=== PATIENT | female | born 1935 | race Caucasian/White ===

== ENCOUNTER 2016-06-22 08:01 | Inpatient (IN) | payer MEDICARE, OTHER ==
[~2016-06-22] VITALS: Ht 162.6 cm; Wt 111.7 kg
[2016-06-22] MEDS ORDERED: FLEC100T PO (08:19)
[2016-06-22] MEDS ORDERED: OMEP40CA2 PO (08:26)
[2016-07-02 07:35] VITALS: BP 193/104; PULSE 67; RESP 24; TEMP 97.5; O2SAT 99
[2016-07-02] MEDS ORDERED: ceFAZolin 2 GM PREMIX 50 ML IV SCH (08:00)
[2016-07-02] MEDS ORDERED: INSULIN HUMAN REGULAR 1,000 UNITS/10 ML VIAL SQ PRN (08:00)
[2016-07-02] MEDS: TRANEXAMIC ACID IV SCH ×2 (08:00→10:05)
[2016-07-02] MEDS: SODIUM CHLORID 0.9% 500 ML IV SCH (08:00)
[2016-07-02] MEDS ORDERED: SODIUM CHLORIDE 0.9% IV SCH (08:00)
[2016-07-02] MEDS: EXPAREL PERI-ARTICULAR INJECTION (TOTAL VOL. 100 ML) P-ARTICULR SCH ×4 (08:00→10:20)
[2016-07-02] MEDS ORDERED: TRANEXAMIC ACID IV SCH (08:00)
[2016-07-02] MEDS: SODIUM CHLORIDE 0.9% IV SCH ×2 (08:00→10:05)
[2016-07-02] MEDS: CHLORHEXIDINE GLUCONATE 4% SOLN 120 ML BTL TOP SCH (08:00)
[2016-07-02] MEDS ORDERED: METOPROLOL TARTRATE 25 MG TAB PO PRN (08:00)
[2016-07-02] MEDS: LACTATED RINGER'S 1000 ML IV SCH (08:00)
[2016-07-02] MEDS ORDERED: GENTAMICIN SULFATE 80 MG/2 ML VIAL ONE (08:39)
[2016-07-02] MEDS ORDERED: MIDAZOLAM HCL 5 MG/5 ML VIAL ONE (09:18)
[2016-07-02] MEDS ORDERED: ONDANSETRON HCL 4 MG/2 ML VIAL IVP PRN (09:30)
[2016-07-02] MEDS ORDERED: ZOLPIDEM TARTRATE 5 MG TAB PO PRN (09:30)
[2016-07-02] MEDS ORDERED: MORPHINE SULFATE 4 MG/ML INJ IV PUSH PRN (09:30)
[2016-07-02] MEDS ORDERED: TRANEXAMIC ACID INJ 0 MG in SODIUM CHLORIDE 0.9% INJ 100 ML IV SCH (09:30)
[2016-07-02] MEDS ORDERED: MAGNESIUM HYDROXIDE SUSP 30 ML CUP PO PRN (09:30)
[2016-07-02] MEDS ORDERED: Post-op Orders (for Pharmacy) MISC XX ONE (09:30)
[2016-07-02] MEDS ORDERED: ACETAMINOPHEN/HYDROcodone 325 MG/7.5 MG TAB PO PRN ×2 (09:30)
[2016-07-02] MEDS ORDERED: FAMOTIDINE 20 MG/2 ML VIAL ONE (09:32)
[2016-07-02] MEDS ORDERED: DEXAMETHASONE SOD PHOS 4 MG/ML VIAL ONE (09:33)
[2016-07-02] MEDS ORDERED: ACETAMINOPHEN 1000 MG/100 ML VIAL IV ONE (09:34)
[2016-07-02] MEDS ORDERED: SUGAMMADEX SODIUM 200 MG/2 ML VIAL IV PUSH ONE ×2 (09:34)
[2016-07-02] MEDS ORDERED: ceFAZolin INJ 1,000 MG VIAL IV ONE (10:20)
[2016-07-02] MEDS ORDERED: PROPOFOL 200 MG/20 ML AMP IV ONE (12:00)
[2016-07-02] MEDS ORDERED: LACTATED RINGER'S 1000 ML INJ 1,000 ML IV ONE (12:00)
[2016-07-02] MEDS ORDERED: NEOSTIGMINE 3 MG/3 ML SYR IV ONE (12:00)
[2016-07-02] MEDS ORDERED: ONDANSETRON HCL 4 MG/2 ML VIAL IV PUSH ONE (12:00)
[2016-07-02] MEDS ORDERED: ePHEDrine/NS 50 MG/5 ML SYR IV ONE (12:00)
[2016-07-02] MEDS ORDERED: DO NOT ADM ANY ANTICOAGULANT DRUGS XX PRN (12:32)
[2016-07-02] MEDS ORDERED: fentaNYL CITRATE 250 MCG/5 ML AMP ONE (12:44)
[2016-07-02] MEDS ORDERED: *LABETALOL HCL 100 MG/20 ML VIAL PERIprocedural Use ONLY ONE (12:48)
[2016-07-02] MEDS ORDERED: BUPIVACAINE LIPOSOME PF 1.3% 20 ML VIAL ONE (12:49)
[2016-07-02] MEDS: LACTATED RINGER'S 1000 ML INJ 1,000 ML IV SCH ×2 (13:00→22:30)
[2016-07-02] MEDS ORDERED: *ONDANSETRON 4 MG VIAL PERIprocedural Use ONLY ONE (13:40)
[2016-07-02] MEDS: KETOROLAC TROMETHAMINE 30 MG/ML (IVP) VIAL IVP SCH ×2 (14:19→18:46)
[2016-07-02 15:03] VITALS: BP 167/74; PULSE 66; RESP 18; TEMP 96.2; O2SAT 97
--- NOTE | 2016-07-02 15:24 | RADRPT ---
EXAM DATE/TIME: 07/02/2016 13:11 [place] COMPARISON: No previous studies available for comparison. INDICATIONS : Eval knee post total replacement. MEDICAL HISTORY : None. SURGICAL HISTORY : Total knee replacement, right. ENCOUNTER: Initial ACUITY: 1 day PAIN SCORE: 4/10 LOCATION: Right Knee FINDINGS: AP and lateral views of the knee following arthroplasty reveals a prosthesis in anatomic alignment. F racture is not appreciated. Surgical drain is evident CONCLUSION: Status post total knee arthroplasty. Nilesh Farris MD FACR Board Certified Radiologist. This report was verified electronically.
--- NOTE | 2016-07-02 15:36 | PD.CONS ---
HPI Service [facility] Hospitalists Consult Requested By Dr. Floyd Reason for Consult Medical management Primary Care Physician Ron Cummings M.D. Diagnoses: History of Present Illness This is a pleasant 80-year-old female with history of OA. Patient was admitted for elective surgery by Dr. Floyd. Patient underwent right total knee arthroplasty. Patient has past medical history of A. fib, on flecainide, no longer takes anticoagulation. Permit Specialist is Dr. Barry, he cleared for surgery. Patient denies any chest pain, no shortness of breath, no palpitations. Indicates her heart rate has been well controlled on flecainide. She was taken off anticoagulation and has been doing well at home. Denies any coronary artery disease, no stroke, no diabetes. Hospitalist services are requested for medical management. (Deepika Real) Review of Systems Constitutional: DENIES: Diaphoretic episodes, Fatigue, Fever, Weight gain, Weight loss, Chills, Dizziness, Change in appetite, Night Sweats Endocrine: DENIES: Abnorml menstrual pattern, Heat/cold intolerance, Polydipsia , Polyuria, Polyphagia Eyes: DENIES: Blurred vision, Diplopia, Eye inflammation, Eye pain, Vision loss , Photosensitivity, Double Vision Cardiovascular: DENIES: Chest pain, Palpitations, Syncope, Dyspnea on Exertion , PND, Lower Extremity Edema, Orthopnea, Claudication Gastrointestinal: DENIES: Abdominal pain, Black stools, Bloody stools, Constipation, Diarrhea, Nausea, Vomiting, Difficulty Swallowing, Anorexia Genitourinary: DENIES: Abnormal vaginal bleeding, Dysmenorrhea, Dyspareunia, Sexual dysfunction, Urinary frequency, Urinary incontinence, Urgency, Hematuria , Dysuria, Nocturia, Vaginal discharge Musculoskeletal: COMPLAINS OF: Joint pain, DENIES: Muscle aches, Stiffness, Joint Swelling, Back pain, Neck pain Integumentary: DENIES: Abnormal pigmentation, Pruritus, Rash, Nail changes, Breast masses, Breast skin changes, Nipple discharge Hematologic/lymphatic: DENIES: Bruising, Lymphadenopathy Immunologic/allergic: DENIES: Eczema, Urticaria Neurologic: DENIES: Abnormal gait, Headache, Localized weakness, Paresthesias, Seizures, Speech Problems, Tremor, Poor Balance Psychiatric: DENIES: Anxiety, Confusion, Mood changes, Depression, Hallucinations, Agitation, Suicidal Ideation, Homicidal Ideation, Delusions ( Deepika Real) Past Family Social History Past Medical History OA Hx afib, was on anticoagulation HTN Past Surgical History Bilat shoulder surgery Arthroscopy surgery bilat knees Appendectomy Tubal ligation Reported Medications Reported Meds & Active Scripts Active Reported Omeprazole 40 Mg Cap 40 Mg PO DAILY Flecainide (Flecainide Acetate) 100 Mg Tab 100 Mg PO BID (Deepika Real) Allergies: Coded Allergies: No Known Allergies (Unverified , 07/02/16) Active Ordered Medications Inpatient Medications Acetaminophen/ Hydrocodone Bitart ([place] 7.5-325 Mg) 2 tab Q4H PRN PO PAIN SCALE 5 TO 10; Start 07/02/16 at 09:30 Bupivacaine Liposome 20 ml/ Sodium Chloride 100 ml @ 200 mls/hr ONCE P- ARTICULR Last administered on 07/02/16t 10:20; Start 07/02/16 at 08:00; Stop at 07:59 Cefazolin Sodium/ Dextrose 50 ml @ 100 mls/hr [employer] IV Last administered on 07/02/16 09:57; Start 07/02/16 at 08:00; Stop 07/05/16 at 07:59 Cefazolin Sodium/ Sodium Chloride (Ancef Inj/NS Inj) 100 ml @ 200 mls/hr Q6H IV ; Start 07/02/16 at 16:00; Stop 07/03/16 at 04:29 Chlorhexidine Gluconate 1 applic 1 applic ONCE TOP ; Start 07/02/16 at 08:00; Stop 07/05/16 at 07:59 Docusate Sodium (Colace) 100 mg BID PO ; Start 07/03/16 at 21:00 Flecainide Acetate (Tambocor) 100 mg BID PO ; Start 07/02/16 at 21:00 Insulin Human Regular (NovoLIN R INJ) See Protocol Table ... UNSCH X1 PRN SQ SEE PROTOCOL; Start 07/02/16 at 08:00; Stop 07/03/16 at 07:59 IV Flush (NS Flush) 2 ml UNSCH PRN IVF FLUSH AFTER USING IV ACCESS; Start 07/02 at 09:30 IV Flush 2 ml 2 ml BID IVF ; Start 07/02/16 at 21:00 Ketorolac Tromethamine (Toradol Inj) 15 mg Q6H IVP Last administered on 14:19; Start 07/02/16 at 13:00; Stop 07/04/16 at 07:01 Lactated Ringer's (Lr 1000 ml Inj) 1,000 ml @ 80 mls/hr [id number] IV Last administered on 07/02/16 13:00; Start 07/02/16 at 10:00 Magnesium Hydroxide (Milk Of Magnesia Liq) 30 ml DAILY PRN PO CONSTIPATION; Start 07/02/16 at 09:30 Metoprolol Tartrate 25 mg 25 mg UNSCH X1 PRN PO SEE LABEL COMMENTS; Start 07/02 at 08:00; Stop 07/03/16 at 07:59 Miscellaneous Information ALL NURSING DEPARTME... UNSCH PRN XX SEE LABEL COMMENTS; Start 07/02/16 at 12:32; Stop 07/03/16 at 12:31 Miscellaneous Information (Post-op Orders (for Pharmacy)) STAT ONCE XX ; Start 07/02/16 at 09:30; Stop 07/02/16 at 12:42; Status DC Morphine Sulfate (Morphine Inj) 4 mg Q3H PRN IV PUSH BREAKTHROUGH PAIN; Start 07/02/16 at 09:30 Ondansetron HCl (Zofran Inj) 4 mg Q6H PRN IVP NAUSEA OR VOMITING; Start at 09:30 Pantoprazole Sodium (Protonix) 40 mg DAILY PO ; Start 07/03/16 at 09:00 Rivaroxaban (Xarelto) 10 mg Q24H PO ; Start 07/03/16 at 12:00 Sodium Chloride (NS 500 ml Inj) 500 ml @ 30 mls/hr [id number] IV ; Start 07/02/16 at 08:00; Stop 07/03/16 at 07:59 Tranexamic Acid 1111 mg/Sodium Chloride 111.11 ml @ 200 mls/ hr ONCE IV Last administered on 07/02/16 13:05; Start 07/02/16 at 08:00; Stop 07/02/16 at 11:11 ; Status DC Zolpidem Tartrate (Ambien) 5 mg HS PRN PO SLEEP; Start 07/02/16 at 09:30 Family History Reviewed, non contributory Social History , lives with . No ETOH, no substance, quit smoking many years ago. (Deepika Real) Physical Exam Vital Signs Vital Signs Date Time Temp Pulse Resp B/P Pulse Ox O2 Delivery O2 Flow Rate FiO2 07/02/16 14:00 97.5 65 14 150/78 99 Nasal Cannula 2 07/02/16 13:45 59 12 155/82 98 Nasal Cannula 2 07/02/16 13:30 57 15 174/89 98 Nasal Cannula 2 07/02/16 13:15 55 15 167/91 98 Nasal Cannula 2 07/02/16 13:00 55 15 144/55 97 Nasal Cannula 2 07/02/16 12:45 79 14 189/86 97 Nasal Cannula 2 07/02/16 12:35 97.6 74 14 174/81 96 Nasal Cannula 2 07/02/16 07:35 97.5 67 24 193/104 99 Physical Exam GENERAL: This is a well-nourished, well-developed patient, in no apparent distress. SKIN: No rashes, ecchymoses or lesions. Cool and dry. HEAD: Atraumatic. Normocephalic. No temporal or scalp tenderness. EYES: Pupils equal round and reactive. Extraocular motions intact. No scleral icterus. No injection or drainage. ENT: Nose without bleeding, purulent drainage or septal hematoma. Throat without erythema, tonsillar hypertrophy or exudate. Uvula midline. Airway patent. NECK: Trachea midline. No JVD or lymphadenopathy. Supple, nontender, no meningeal signs. CARDIOVASCULAR: Regular rate and rhythm without murmurs, gallops, or rubs. RESPIRATORY: Clear to auscultation. Breath sounds equal bilaterally. No wheezes , rales, or rhonchi. GASTROINTESTINAL: Abdomen soft, non-tender, nondistended. No hepato-splenomegaly , or palpable masses. No guarding. MUSCULOSKELETAL: Right leg on CPM, intact sensation right foot. Able to dorsiflex right foot. Other extremities without clubbing, cyanosis, or edema. No joint tenderness, effusion, or edema noted. No calf tenderness. Negative Homans sign bilaterally. NEUROLOGICAL: Awake and alert. Cranial nerves II through XII intact. Motor and sensory grossly within normal limits. Five out of 5 muscle strength in all muscle groups. Normal speech. Laboratory Laboratory Tests Test 07/02/16 08:00 Blood Type A POSITIVE Antibody Screen NEGATIVE (Deepika Real) Imaging Last Impressions Knee X-Ray 07/02/16 0917 Signed Impressions: Service Date/Time: Saturday, July 02, 2016 13:11 - CONCLUSION: Status post total knee arthroplasty. Nilesh Farris MD (Deepika Real) A/P Diagnosis: (1) Status post total right knee replacement (2) Paroxysmal atrial fibrillation (3) Elevated BP without diagnosis of hypertension Assessment and Plan Thank you for this consultation, we will assist with medical management. Hx of OA, S/P right TKA -Post op ortho care -Xarelto for DVT prophylaxis -Pain management -PT evaluation -Wound care -Bowel regimen Hx Paroxysmal afib, stable -Continuous cardiac telemetry -Continue Tambocor -No anticoagulation at home, continue with Xarelto at this time Elevated BP, no prior hx of HTN -Monitor BP -Vasotec PRN Home medications reviewed, already restarted Continue with Xarelto for DVT prophylaxis Plan of care discussed with attending, RN, and pt. Further management of the patient will be dependent on the hospital course. This patient was seen by myself and Dr. Linder, this consultation is written on his behalf. (Deepika Real) Assessment and Plan Patient seen and examined as above Chart reviewed Meds reviewed Labs and radiological data reviewed Plan of care discussed with AKIL as above Discussed with patient and at bedside (Yoseph Linder MD) Deepika Real Jul 02, 2016 15:36 Yoseph Linder MD Jul 02, 2016 16:49
[2016-07-02] MEDS ORDERED: ENALAPRILAT 1.25 MG/ML VIAL IV PUSH PRN (16:30)
[2016-07-02] MEDS: SODIUM CHLORIDE 0.9% FLUSH 5 ML FLUSH IVF PRN (18:46)
[2016-07-02 20:25] VITALS: BP 140/71; PULSE 69; RESP 17; TEMP 95.6; O2SAT 97
[2016-07-02] MEDS: FLECAINIDE ACETATE 100 MG TAB PO SCH (20:52)
[2016-07-02] MEDS: SODIUM CHLORIDE 0.9% FLUSH 5 ML FLUSH IVF SCH (21:00)
[2016-07-03] VITALS (7 sets, daily range): BP systolic 120–145; BP diastolic 58–72; PULSE 65–75; RESP 16–18; TEMP 96.2–97.6; O2SAT 98–99
[2016-07-03] MEDS: SODIUM CHLORID 0.9% 500 ML IV SCH (00:40)
[2016-07-03] MEDS: KETOROLAC TROMETHAMINE 30 MG/ML (IVP) VIAL IVP SCH ×5 (01:15→23:01)
[2016-07-03 05:21] LABS: HEMATOCRIT 34.2 % (35.0-46.0); REVIEW FLAG FINAL
[2016-07-03 05:42] LABS: BICARBONATE 26.9 MEQ/L (21.0-32.0); POTASSIUM 4.5 MEQ/L (3.5-5.1)
--- NOTE | 2016-07-03 06:32 | PD.ORT.PN ---
Subjective Post Op Day #: 1 Subjective Remarks She is doing well. She has been up to the bathroom. There is little pain. Range of Motion -10 to 94 degrees. Distance Walked 3 feet. Objective Vitals Vital Signs Date Time Temp Pulse Resp B/P Pulse Ox O2 Delivery O2 Flow Rate FiO2 07/03/16 00:10 96.4 75 17 125/65 98 07/02/16 21:30 Nasal Cannula 2.00 07/02/16 20:25 95.6 69 17 140/71 97 07/02/16 15:03 96.2 66 18 167/74 97 07/02/16 14:30 Nasal Cannula 07/02/16 14:00 97.5 65 14 150/78 99 Nasal Cannula 2 07/02/16 13:45 59 12 155/82 98 Nasal Cannula 2 07/02/16 13:30 57 15 174/89 98 Nasal Cannula 2 07/02/16 13:15 55 15 167/91 98 Nasal Cannula 2 07/02/16 13:00 55 15 144/55 97 Nasal Cannula 2 07/02/16 12:45 79 14 189/86 97 Nasal Cannula 2 07/02/16 12:35 97.6 74 14 174/81 96 Nasal Cannula 2 07/02/16 07:35 97.5 67 24 193/104 99 I/O 07/02/16 07/02/16 07/02/16 07/03/16 07/03/16 07/03/16 07:00 15:00 23:00 07:00 15:00 23:00 Intake Total 1564 ml 1061 ml 269 ml Output Total 470 ml 160 ml 100 ml Balance 1094 ml 901 ml 169 ml Intake Oral 600 ml IV Total 264 ml 461 ml 269 ml Other 1300 ml Output Drainage Total 120 ml 160 ml 100 ml Estimated Blood Loss 350 ml # Voids 1 4 # Bowel Movements 0 Result Diagram: 07/03/16 0440 07/03/16 044 Imaging Knee x-ray looks good. Last 24 hours Impressions Knee X-Ray 07/02/16916 Signed Impressions: Service Date/Time: Saturday, July 02, 2016 13:11 - CONCLUSION: Status post total knee arthroplasty. Nilesh Farris MD Objective Remarks She is resting comfortably, supine in bed in the [facility]. The dressing is intact. The neurovascular status is intact. Assessment & Plan Ortho Post Op Day #: 1 Problem List: (1) Status post total right knee replacement Plan: Continue postop care and PT. Assessment and Plan Condition: Good. Orthopaedically stable. DVT prophylaxis: ABBE stockings, sequentials, Xarelto. Discharge plans: Home with C vs SNF, Saturday or . Has appointment. Larry Floyd MD (Charles) Jul 03, 2016 06:32
[2016-07-03] MEDS: LACTATED RINGER'S 1000 ML IV SCH (08:00)
[2016-07-03] MEDS: CHLORHEXIDINE GLUCONATE 4% SOLN 120 ML BTL TOP SCH (08:00)
[2016-07-03] MEDS: SODIUM CHLORIDE 0.9% FLUSH 5 ML FLUSH IVF SCH ×2 (09:01→20:07)
[2016-07-03] MEDS: PANTOPRAZOLE SOD 40 MG DELAYED RELEASE TAB PO SCH (09:01)
[2016-07-03] MEDS: FLECAINIDE ACETATE 100 MG TAB PO SCH ×2 (09:02→20:07)
--- NOTE | 2016-07-03 09:43 | HHI.PR ---
Subjective Subjective Remarks right leg pain has been out of bed working with PT no cp no sob no fever no bm yet no n/v tele reviewed, SR Review of Systems Constitutional Constitutional Remarks 12 point ROS completed, negative except at noted above Vitals/Results Intake & Output 07/02/16 07/02/16 07/03/16 15:00 23:00 07:00 Intake Total 1564 ml 1061 ml 509 ml Output Total 470 ml 160 ml 100 ml Balance 1094 ml 901 ml 409 ml Intake Oral 600 ml 240 ml IV Total 264 ml 461 ml 269 ml Other 1300 ml Output Drainage Total 120 ml 160 ml 100 ml Estimated Blood Loss 350 ml # Voids 1 4 1 # Bowel Movements 0 0 Vital Signs Vital Signs Date Time Temp Pulse Resp B/P Pulse Ox O2 Delivery O2 Flow Rate FiO2 07/03/16 09:05 Room Air 07/03/16 07:44 96.4 66 17 144/67 99 07/03/16 04:10 96.3 71 18 120/58 98 07/03/16 00:10 96.4 75 17 125/65 98 07/02/16 21:30 Nasal Cannula 2.00 07/02/16 20:25 95.6 69 17 140/71 97 07/02/16 15:03 96.2 66 18 167/74 97 07/02/16 14:30 Nasal Cannula 07/02/16 14:00 97.5 65 14 150/78 99 Nasal Cannula 2 07/02/16 13:45 59 12 155/82 98 Nasal Cannula 2 07/02/16 13:30 57 15 174/89 98 Nasal Cannula 2 07/02/16 13:15 55 15 167/91 98 Nasal Cannula 2 07/02/16 13:00 55 15 144/55 97 Nasal Cannula 2 07/02/16 12:45 79 14 189/86 97 Nasal Cannula 2 07/02/16 12:35 97.6 74 14 174/81 96 Nasal Cannula 2 CBC/BMP: 07/03/16 0440 07/03/16 0440 Lab Results Laboratory Tests Test 07/03/16 04:40 Hemoglobin 11.6 GM/DL Hematocrit 34.2 % Sodium Level 141 MEQ/L Potassium Level 4.5 MEQ/L Chloride Level 105 MEQ/L Carbon Dioxide Level 26.9 MEQ/L Anion Gap 9 MEQ/L Blood Urea Nitrogen 15 MG/DL Creatinine 1.14 MG/DL Estimat Glomerular Filtration 46 ML/MIN Rate Random Glucose 125 MG/DL Calcium Level 8.2 MG/DL Physical Exam General General Appearance: Well Developed, Well Nourished, No Acute Distress, Comfortable, Obese Eyes Eye Exam: Pupils Equal, Pupils Reactive Ears & Nose Ears & Nose Exam: Nasal Mucosa [place] Throat Throat Exam: Oral Mucosa [place] & Moist Neck Neck Exam: Neck Supple, Trachea Midline Pulmonary Resp Exam: Clear Bilaterally, No Distress Cardiology CV Exam: Regular Gastrointestinal/Abdomen GI Exam: Soft, Non-Tender, Bowel Sounds Present, Non-Distended Musculoskeletal MS Exam: Joints Intact MS Remarks right knee with dressing, hemovac drain Integumentary Skin Exam: Warm, Dry Extremeties Extremities Exam: Pedal Pulses Palpable, Trace Edema Neurologic Neuro Exam: Alert, Awake, Oriented, Speech Clear, Moving All Extremities, No Focal Deficits Psychiatric Psych Exam: Appropriate Responses VTE Prophylaxis VTE Remarks Xarelto Assessment/Plan Problem List: (1) Primary osteoarthritis of right knee (2) Status post total right knee replacement (3) Elevated BP without diagnosis of hypertension (4) Paroxysmal atrial fibrillation Assessment/Plan Hx of OA, S/P right TKA -Post op ortho care -Xarelto for DVT prophylaxis -Pain management -PT evaluation -Wound care -Bowel regimen Hx Paroxysmal afib, stable -Continuous cardiac telemetry -Continue Tambocor -No anticoagulation at home, continue with Xarelto at this time Elevated BP, no prior hx of HTN, stable overnight -Monitor BP -Vasotec PRN Continue with Xarelto for DVT prophylaxis HH stable D/W RN D/W Dr. Almazan D/W pt. This patient was seen by myself and Dr. Almazan, this note is written on his behalf. Deepika Real Jul 03, 2016 09:43
[2016-07-03] MEDS: LACTATED RINGER'S 1000 ML INJ 1,000 ML IV SCH ×2 (11:00→23:30)
[2016-07-03] MEDS ORDERED: RIVAROXABAN 10 MG TAB PO SCH (12:00)
[2016-07-03] MEDS: SODIUM CHLORIDE 0.9% FLUSH 5 ML FLUSH IVF PRN (12:48)
[2016-07-03] MEDS: traMADol HCL 50 MG TAB PO PRN ×2 (16:50→22:58)
[2016-07-03] MEDS ORDERED: WALKER WHEELS/F1 MIS (17:05)
--- NOTE | 2016-07-03 17:09 | HHI.FF ---
Face to Face Verification Diagnosis: (1) Status post total right knee replacement Physical Therapy Gait training Knee: Total knee, Protocol: Right, Gait training, Full weight bearing Right LE Weight Bearing: WB as tolerated Right LE Range of Motion: Active ROM (AROM, AAROM, PROM, PRE. ROM goal is 0 to 130 degrees. ROM in OR was 0 to 140 degrees.) Nursing Nursing: Dressing changes Dressing Changes: Daily dressing change, Coverderm/Primapore Additional Instructions Remove steristrips on postop day 14. I have seen patient Radha Christy on 07/03/16. My clinical findings support the need for the requested home health care services because: Ltd mobility - disease progression Limited ability to care for self High risk of falls I certify that my clinical findings support that this patient is homebound because: Post-op weakness Unsteady gait/balance Unsafe to leave home unassisted Larry Floyd MD (Charles) Jul 03, 2016 17:09
[2016-07-03] MEDS: DOCUSATE SODIUM 100 MG CAP PO SCH (20:07)
[2016-07-04] VITALS: BP 137/71; PULSE 64; RESP 16; TEMP 97; O2SAT 98
[2016-07-04 04:00] VITALS: BP 136/81; PULSE 66; RESP 17; TEMP 97.4; O2SAT 98
[2016-07-04] MEDS: traMADol HCL 50 MG TAB PO PRN (06:16)
[2016-07-04 06:42] LABS: HEMATOCRIT 32.8 % (35.0-46.0); REVIEW FLAG FINAL
[2016-07-04] MEDS: KETOROLAC TROMETHAMINE 30 MG/ML (IVP) VIAL IVP SCH (06:43)
--- NOTE | 2016-07-04 07:05 | PD.ORT.PN ---
Subjective Post Op Day #: 2 Subjective Remarks She is doing well. She has been up to the bathroom and to PT. There is little pain. Range of Motion -5 to 95 degrees. Distance Walked 24 feet. Objective Vitals Vital Signs Date Time Temp Pulse Resp B/P Pulse Ox O2 Delivery O2 Flow Rate FiO2 07/04/16 04:00 97.4 66 17 136/81 98 07/04/16 00:00 97.0 64 16 137/71 98 07/03/16 21:00 Room Air 07/03/16 20:00 96.4 70 16 140/67 98 07/03/16 15:29 97.6 68 17 145/72 98 07/03/16 11:39 96.2 65 17 130/60 98 07/03/16 09:05 Room Air 07/03/16 07:59 65 07/03/16 07:44 96.4 66 17 144/67 99 I/O 07/03/16 07/03/16 07/03/16 07/04/16 07/04/16 07/04/16 07:00 15:00 23:00 07:00 15:00 23:00 Intake Total 509 ml 240 ml 240 ml 240 ml Output Total 100 ml 30 ml 5 ml Balance 409 ml 240 ml 210 ml 235 ml Intake Oral 240 ml 240 ml 240 ml 240 ml IV Total 269 ml Output Drainage Total 100 ml 30 ml 5 ml # Voids 1 2 1 1 # Bowel Movements 0 0 0 0 Result Diagram: 07/04/16 0549 07/03/16 0440 Imaging Knee x-ray looks good. Last 24 hours Impressions Knee X-Ray 07/02/16 0917 Signed Impressions: Service Date/Time: Saturday, July 02, 2016 13:11 - CONCLUSION: Status post total knee arthroplasty. Nilesh Farris MD Objective Remarks She is OOb in the chair. The dressing is intact. There is no erythema or induration. The neurovascular status is intact. Assessment & Plan Ortho Post Op Day #: 2 Problem List: (1) Status post total right knee replacement Plan: Continue postop care and PT. Assessment and Plan Condition: Good. Orthopaedically stable. DVT prophylaxis: ABBE stockings, sequentials,ASA. Discharge plans: Home with [facility] today. Has appointment. Rx: [place] 7.5/325 Larry Floyd MD (Charles) Jul 04, 2016 07:04
[2016-07-04] MEDS ORDERED: Aspirin Ec PO (07:30)
[2016-07-04] MEDS ORDERED: HYDR-3580 PO (07:30)
[2016-07-04] MEDS: DOCUSATE SODIUM 100 MG CAP PO SCH (08:05)
[2016-07-04] MEDS: FLECAINIDE ACETATE 100 MG TAB PO SCH (08:06)
[2016-07-04] MEDS: PANTOPRAZOLE SOD 40 MG DELAYED RELEASE TAB PO SCH (08:06)
[2016-07-04] MEDS ORDERED: ASPIRIN EC 325 MG TABEC PO SCH (09:00)
--- NOTE | 2016-07-04 10:52 | HHI.PR ---
Vitals/Results Intake & Output 07/03/16 07/03/16 07/04/16 15:00 23:00 07:00 Intake Total 240 ml 240 ml 240 ml Output Total 30 ml 5 ml Balance 240 ml 210 ml 235 ml Intake Oral 240 ml 240 ml 240 ml Output Drainage Total 30 ml 5 ml # Voids 2 1 1 # Bowel Movements 0 0 0 Vital Signs Vital Signs Date Time Temp Pulse Resp B/P Pulse Ox O2 Delivery O2 Flow Rate FiO2 07/04/16 04:00 97.4 66 17 136/81 98 07/04/16 00:00 97.0 64 16 137/71 98 07/03/16 21:00 Room Air 07/03/16 20:00 96.4 70 16 140/67 98 07/03/16 15:29 97.6 68 17 145/72 98 07/03/16 11:39 96.2 65 17 130/60 98 CBC/BMP: 07/04/16 0549 07/03/16 0440 Lab Results Laboratory Tests Test 07/04/16 05:49 Hemoglobin 11.1 GM/DL Hematocrit 32.8 % Physical Exam General General Appearance: Well Developed, Well Nourished, No Acute Distress, Comfortable, Obese Eyes Eye Exam: Pupils Equal, Pupils Reactive Ears & Nose Ears & Nose Exam: Nasal Mucosa [place] Throat Throat Exam: Oral Mucosa [place] & Moist Neck Neck Exam: Neck Supple, Trachea Midline Pulmonary Resp Exam: Clear Bilaterally, No Distress Cardiology CV Exam: Regular Gastrointestinal/Abdomen GI Exam: Soft, Non-Tender, Bowel Sounds Present, Non-Distended Musculoskeletal MS Exam: Joints Intact Integumentary Skin Exam: Warm, Dry Extremeties Extremities Exam: Pedal Pulses Palpable, Trace Edema Neurologic Neuro Exam: Alert, Awake, Oriented, Speech Clear, Moving All Extremities, No Focal Deficits Psychiatric Psych Exam: Appropriate Responses Assessment/Plan Problem List: (1) Primary osteoarthritis of right knee (2) Status post total right knee replacement (3) Elevated BP without diagnosis of hypertension (4) Paroxysmal atrial fibrillation Shaan Almazan MD Jul 04, 2016 10:52 -Xarelto for DVT prophylaxis -Pain management -PT evaluation -Wound care -Bowel regimen Hx Paroxysmal afib, stable -Continuous cardiac telemetry -Continue Tambocor -No anticoagulation at home, continue with Xarelto at this time Elevated BP, no prior hx of HTN, stable overnight -Monitor BP -Vasotec PRN Continue with Xarelto for DVT prophylaxis HH stable D/W RN D/W Dr. Almazan D/W pt. This patient was seen by myself and Dr. Almazan, this note is written on his behalf. Shaan Almazan MD Jul 04, 2016 10:52
--- NOTE | 2016-07-04 23:01 | MP ---
cc: Silvia ENCINAS. DATE OF SURGERY 07/02/2016 PREOPERATIVE DIAGNOSIS Primary osteoarthritis right knee POSTOPERATIVE DIAGNOSIS Primary osteoarthritis right knee OPERATION PERFORMED Right total knee arthroplasty with Kashif Triathlon prosthesis (uncemented). SURGEON Fanny Encinas MD [employer] KEENE ANESTHESIA General endotracheal with supplemental saphenous nerve block and local. INDICATIONS AND FINDINGS This 80-year-old woman has had progressive worsening of right knee pain for the past two years. She had arthroscopic surgery in [place] in 1998. Recently, her pain has been continuing to worsen to the point that she has difficulty walking greater than four blocks because of the pain. She has difficulty ascending and descending stairs, standing from a seated position, episodic giving-away and crepitation. Primarily, she has a lateral pain. She has not responded to conservative care including anti-inflammatory agents, arthroscopic surgery, analgesics, intra-articular corticosteroids, intra-articular Synvisc injections, ambulatory aids and attempts at weight loss. She is unable to function in an adequate way because of the pain in her knee. Physical findings shows genu valgum with lateral laxity and crepitation throughout the entire range of motion, especially laterally. Her neurovascular status is intact. There is tenderness on motion with crepitation as well. X-rays show severe osteoarthritis, going down to [id number] in the lateral compartment with large osteophytes that are tricompartmental in nature. There is some significant patellofemoral arthritis. There is eburnation as well as the osteophytes. Operative findings showed severe osteoarthritis with the patella having a large hook of osteophyte coming out laterally as well as superior osteophyte and loss of articular cartilage over the lateral femur and lateral trochlea which was eroded significantly. The lateral femoral condyle was hypoplastic and degenerated. The tibial plateau laterally went down to expose subchondral bone more posteriorly than anteriorly. Medially there was also degenerative change. The anterior cruciate ligament was absent. There was calcification in the soft tissues consistent with chondrocalcinosis. The prosthesis used was a Striker Triathlon prosthesis with the femur being a size four cementless, the tibia being a tritanium baseplate size four with a 9 mm cruciate-retaining X3 polyethylene insert. The patella was a tritanium backed asymmetric patella size 35 mm. PROCEDURE IN DETAIL The patient had an adductor canal block carried out preoperatively and was transferred to the clean-air operating suite where a general endotracheal anesthetic was administered. She was placed in A supine position on the operating table with a small bolster under the right hip. A pneumatic tourniquet was applied to the right thigh. The leg was then prepped with alcohol, Hibiclens and Chloraprep and draped in the usual manner with the knee draped free. An appropriate time-out procedure was carried out. Local anesthesia was administered into the incision site prior to making the incision. The incision was then made from about three fingerbreadths above the superior and medial pole of the patella and carried down to the tibial tubercle. The incision was deepened through the subcutaneous tissues to the retinacular structures which were exposed medially and laterally. The medial retinacular incision was then made from the superior medial pole of patella down to the tibial tubercle and up into the quadriceps tendon splitting it longitudinally in the medial one-third. The patella was reflected. Medial and lateral dissection was carried out. Medial and lateral meniscectomies were initiated. The infrapatellar fat pad was debulked. Osteophytes were then trimmed from around the patella. They were also trimmed from the femur. The posterior surface of the patella was then excised using the oscillating saw. A patella protector was applied. The patella was flipped into the lateral gutter. A small lateral retinacular release was carried out at this time with electrocautery from within the joint. The femoral preparation was initiated by making fenestration of the distal end of the femur with the appropriate drill. White size line had been marked. The epicondylar axis was also identified and marked. The distal femoral cutting guide and jig were then assembled for a 5 degree 8-mm cut. The cutting block was stabilized with pins. The distal femoral cut was completed with the oscillating saw taking care to prevent injury to associated structures. The sizing guide was then positioned along white size line and the epicondylar axis because of the hypoplastic lateral femoral condyle. When this was stabilized with pins, the size was determined to be a size four. The 4:1 cutting block was then positioned in place. Anterior and posterior cuts were made followed by posterior and anterior chamfer cuts. Osteophytes were trimmed from the femur. The fenestration in the distal femur was then filled with bone plug. Attention was directed to the tibia. Medial and lateral dissection was carried out again. Medial and lateral meniscectomies were completed. The tibial cutting guide was then positioned in place and stabilized along the appropriate axis. The cutting guide was positioned using the stylus off the high side anteriorly. This cutting block was stabilized with pins. The jig was removed. The depth of cut was verified and adjusted. The cutting block was stabilized with a cross pin. The proximal tibial cut was then completed with the oscillating saw taking care to prevent injury to neurovascular and ligamentous structures. The size that appeared appropriate was a size four baseplate. A 9 mm spacer was inserted into this. Femoral component was impacted into place and seated appropriately. The tibial component was then adjusted for rotation and position. This was then stabilized with pins when this was an appropriate position. The patella drill holes were then made for the 32-mm patella. The trial patella was then positioned in place. The knee was taken through a range of motion which was easily 0 degrees extension to 135 degrees with this being limited only by the soft tissues in the popliteal space. The stability was excellent. Tracking was appropriate. The patella trial was removed. The femoral drill holes were then made through the trial femur placed on reverse to compress bone. The femoral component was removed. The tibial spacer was removed. Tibial punch was impacted through its guide and then removed. The tibial baseplate was then removed. The drill guide was positioned onto the tibia and impacted into place. Drill holes were then made. The tibial drill guide was removed. The cut ends of bone were cleaned with pulse lavage. Local anesthesia was administered throughout the posterior aspect of the knee throughout the posterior capsule, ligamentous edges and throughout the knee using a full dose of Exparel. The tibial baseplate was then impacted into place and seated appropriately. The spacer was inserted into it. The femoral component was impacted into place. The patella was then positioned in place and fixed with the patella vice. The knee was taken through a range of motion which was easily 0 degrees extension to 135 degrees of flexion with excellent stability in flexion and extension. Tracking of the patella was appropriate. Drains were brought out the superolateral aspect of the suprapatellar pouch. The remainder of the Exparel was injected. The wound was then closed in layers using 0 Vicryl interrupted [id number] sutures for the retinacular and capsular structures, 2-0 Vicryl interrupted simple sutures with buried knots for the subcutaneous tissues and 4-0 Monocryl continuous subcuticular closure for the skin. The wound was dressed with Steri-Strips followed by dry dressing, sterile Sof-Rol, cooling pad, further sterile Sof-Rol and Michael bandage from the base of the toe to mid thigh. The patient was transferred from the operating room to the recovery room in satisfactory condition having tolerated the procedure well. Counts were correct. Specimens none. Estimated blood loss 350 mL. MD VIN Balbuena/ /12:21 PM /10:38 PM
== END 2016-07-04 10:52 | disposition home or self-care (01) | DRG 470 ==
LOC: HSDI 07-02 07:21 → N06A 07-02 15:08
PROVIDERS: ADMIT Orthopaedic Surgery; ATTEND Orthopaedic Surgery
PROC: 3E0T3CZ (ICD-10-PCS; 2016-07-02)
PROC: 0SRC0JA Replacement of Right Knee Joint with Synthetic Substitute, Uncemented, Open Approach (ICD-10-PCS; principal; 2016-07-02 09:46)
DX: M17.11 Unilateral primary osteoarthritis, right knee (principal); I48.0 Paroxysmal atrial fibrillation; I10 Essential (primary) hypertension; I48.91 Unspecified atrial fibrillation; M11.20 Other chondrocalcinosis, unspecified site; M21.069 Valgus deformity, not elsewhere classified, unspecified knee
CPT/HCPCS: 73560; 80048; 85014; 85018; 86850; 86900; 86901; 94150; C1776; C9290; J0131; J0690; J1100; J1580; J1885; J2250; J2405; J2710; J3010; J7120

== ENCOUNTER → 2016-06-22 | Outpatient (CLI) | payer MEDICARE, OTHER ==
[~2016-06-22] MED LIST: APIX5TAB PO; Aspirin Ec PO; FLEC100 PO; FLEC100T PO; HYDR-3580 PO; OMEP10CA PO; OMEP40CA2 PO; TRAM50 PO; WALKER WHEELS/F1 MIS
[2016-06-22 08:25] LABS: HEMATOCRIT 42.5 % (35.0-46.0); MEAN CELL VOLUME 87.3 FL (80.0-100.0); MEAN CORPUSCULAR HGB CONC 34.4 % (32.0-36.0); PLATELET COUNT 222 TH/MM3 (150-450); RED BLOOD COUNT 4.86 MIL/MM3 (4.00-5.30); RED CELL DISTRIBUTION WIDTH 14.4 % (11.6-17.2); REVIEW FLAG FINAL; WHITE BLOOD COUNT 4.8 TH/MM3 (4.0-11.0)
[2016-06-22 08:53] LABS: BICARBONATE 28.3 MEQ/L (21.0-32.0); POTASSIUM 4.2 MEQ/L (3.5-5.1)
[2016-06-22 08:57] LABS: APTT (PATIENT) 24.6 SEC (24.3-30.1); PROTHROMBIN TIME - PATIENT 10.6 SEC (9.8-11.6)
--- NOTE | 2016-06-22 15:18 | EKG ---
Date Performed: 06/22/2016 Time Performed: 08:42:35 PTAGE: 80 years EKG: SINUS BRADYCARDIA WITH SINUS ARRHYTHMIA NO SIGNIFICANT ST-T WAVE CHANGES. COMPARED TO PRIOR TRACING THE RBBB HAS RESOLVED. BORDERLINE ECG PREVIOUS TRACING 10/27/2015 @ 20.19.24 DOCTOR: Petra Mendosa Interpretating Date/Time 06/22/2016 15:16:11
== END ==
LOC: CPRE 07:57
PROVIDERS: ATTEND Orthopaedic Surgery
DX: Z01.810 Encounter for preprocedural cardiovascular examination (principal); Z01.812 Encounter for preprocedural laboratory examination; M17.11 Unilateral primary osteoarthritis, right knee; I48.91 Unspecified atrial fibrillation; M79.609 Pain in unspecified limb; R00.1 Bradycardia, unspecified
CPT/HCPCS: 36415; 80048; 85027; 85610; 85730; 93005

== ENCOUNTER → 2017-06-07 | Outpatient (CLI) | payer MEDICARE, OTHER ==
[~2017-06-07] MED LIST changes: -APIX5TAB PO; -FLEC100 PO; -OMEP10CA PO; +OMEP20TA93 PO; -TRAM50 PO
[2017-06-07 09:49] LABS: HEMATOCRIT 37.3 % (35.0-46.0); HEMOGLOBIN 12.4 GM/DL (11.6-15.3); MEAN CELL VOLUME 83.9 FL (80.0-100.0); MEAN CORPUSCULAR HGB CONC 33.4 % (32.0-36.0); MEAN PLATELET VOLUME 7.2 FL (7.0-11.0); PLATELET COUNT 258 TH/MM3 (150-450); RED BLOOD COUNT 4.45 MIL/MM3 (4.00-5.30); RED CELL DISTRIBUTION WIDTH 14.8 % (11.6-17.2); WHITE BLOOD COUNT 5.1 TH/MM3 (4.0-11.0)
[2017-06-07 09:54] LABS: BILIRUBIN, URINE NEG (NEG); BLOOD, URINE NEG (NEG); GLUCOSE,URINE NEG (NEG); KETONE, URINE NEG (NEG); MUCUS URINE FEW /lpf (OCC); NITRITE,URINE NEG (NEG); SQUAMOUS EPITHELIAL CELL URINE <1 /hpf (0-5); URINE COLOR YELLOW (YELLW/STRAW); URINE LEUKOCYTE ESTERASE TRACE (NEG)
[2017-06-07 09:58] LABS: PROTHROMBIN TIME - PATIENT 10.5 SEC (9.8-11.6)
[2017-06-07 10:16] LABS: CREATININE 1.29 MG/DL (0.50-1.00)
--- NOTE | 2017-06-07 22:20 | EKG ---
Date Performed: 06/07/2017 Time Performed: 09:20:34 PTAGE: 81 years EKG: Sinus bradycardia with sinus arrhythmia with PVC(s) with borderline 1st degree A-V block. P rolonged QT interval Extensive T wave changes are nonspecific Borderline ECG PREVIOUS TRACING : 06/22/2016 08.42 Compared to the previous tracing, PVCs now noted DOCTOR: Rian Parkinson Interpretating Date/Time 06/07/2017 22:18:57
== END ==
LOC: CPRE 08:47
PROVIDERS: ATTEND Orthopaedic Surgery
DX: Z01.812 Encounter for preprocedural laboratory examination (principal); Z01.810 Encounter for preprocedural cardiovascular examination; M17.12 Unilateral primary osteoarthritis, left knee; M21.062 Valgus deformity, not elsewhere classified, left knee; M79.609 Pain in unspecified limb; I10 Essential (primary) hypertension; R94.31 Abnormal electrocardiogram [ECG] [EKG]
CPT/HCPCS: 36415; 80048; 81001; 85027; 85610; 85730; 93005

== ENCOUNTER 2017-07-01 05:25 | Inpatient (IN) | payer MEDICARE, OTHER ==
[~2017-07-01] VITALS: Ht 162.6 cm; Wt 108.2 kg
[~2017-07-01 05:25] MED LIST changes: -Aspirin Ec PO; -HYDR-3580 PO; -OMEP40CA2 PO
[2017-07-01] MEDS ORDERED: ceFAZolin 2 GM PREMIX 50 ML IV SCH (06:00)
[2017-07-01] MEDS ORDERED: CHLORHEXIDINE GLUCONATE 4% SOLN 120 ML BTL TOPICAL SCH (06:00)
[2017-07-01] MEDS ORDERED: CHLORHEXIDINE GLUCONATE 2 % 1 PACK (2 CLOTHS) TOPICAL PRN (06:00)
[2017-07-01] MEDS ORDERED: SODIUM CHLORID 0.9% 500 ML IV PRN (06:00)
[2017-07-01] MEDS ORDERED: LACTATED RINGER'S 1000 ML IV PRN (06:00)
[2017-07-01] MEDS ORDERED: METOPROLOL TARTRATE 25 MG TAB PO PRN (06:00)
[2017-07-01] MEDS ORDERED: POVIDONE IODINE 5% (ANTISEPSIS KIT) 4 APPLICATIONS EACH NARE PRN (06:00)
[2017-07-01] MEDS ORDERED: ACETAMINOPHEN 1000 MG/100 ML 100 ML IV ONE (06:26)
[2017-07-01] MEDS ORDERED: FAMOTIDINE 20 MG/2 ML VIAL ONE (06:27)
[2017-07-01] MEDS ORDERED: BUPIVACAINE LIPOSOME PF 1.3% 20 ML VIAL ONE (06:27)
[2017-07-01] MEDS ORDERED: MIDAZOLAM HCL 2 MG/2 ML VIAL ONE (06:27)
[2017-07-01] MEDS ORDERED: APREPITANT 40 MG CAP ONE (06:34)
[2017-07-01] MEDS ORDERED: ONDANSETRON HCL 4 MG/2 ML VIAL ONE (06:35)
[2017-07-01] MEDS ORDERED: ECASA81 PO (06:55)
--- NOTE | 2017-07-01 06:58 | HHI.FF ---
Face to Face Verification Diagnosis: (1) Status post total left knee replacement Physical Therapy Knee: Total knee, Protocol: Left, Gait training, Full weight bearing Left LE Weight Bearing: WB as tolerated Left LE Range of Motion: Active ROM (AROM, AAROM, PROM. ROM goal is 0 to 130 degrees.) Nursing Nursing: Dressing changes (to begin on postop day 7.) Dressing Changes: Daily dressing change (to begin on postop day 7.), Coverderm/ [place] Additional Instructions Remove steristrips on postop day 14. I have seen patient Radha Christy on 07/01/17. My clinical findings support the need for the requested home health care services because: Ltd mobility - disease progression Limited ability to care for self High risk of falls I certify that my clinical findings support that this patient is homebound because: Post-op weakness Unsteady gait/balance Unsafe to leave home unassisted Larry Floyd MD (Charles) Jul 01, 2017 06:58
[2017-07-01] MEDS ORDERED: MAGNESIUM HYDROXIDE SUSP 30 ML CUP PO PRN (07:00)
[2017-07-01] MEDS ORDERED: TRANEXAMIC ACID INJ 0 MG in SODIUM CHLORIDE 0.9% INJ 100 ML IV SCH (07:00)
[2017-07-01] MEDS ORDERED: ONDANSETRON HCL 4 MG/2 ML VIAL IVP PRN (07:00)
[2017-07-01] MEDS ORDERED: ACETAMINOPHEN/HYDROcodone 325 MG/7.5 MG TAB PO PRN ×2 (07:00)
[2017-07-01] MEDS ORDERED: MORPHINE SULFATE 4 MG/ML INJ IV PUSH PRN (07:00)
[2017-07-01] MEDS ORDERED: EXPAREL PERI-ARTICULAR INJECTION (TOTAL VOL. 100 ML) P-ARTICULR SCH ×2 (07:00)
[2017-07-01] MEDS ORDERED: Post-op Orders (for Pharmacy) XX ONE (07:00)
[2017-07-01] MEDS ORDERED: TRANEXAMIC ACID INJ 1,082 MG in SODIUM CHLORIDE 0.9% INJ 100 ML IV SCH ×2 (07:00→10:00)
[2017-07-01] MEDS: PANTOPRAZOLE SOD 20 MG DELAYED RELEASE TAB PO SCH (09:00)
[2017-07-01] MEDS: FLECAINIDE ACETATE 100 MG TAB PO SCH ×2 (09:00→23:10)
--- NOTE | 2017-07-01 09:17 | PD.OP ---
Operative Report Date of Surgery: Jul 01, 2017 Preoperative Diagnosis: (1) Primary osteoarthritis of left knee Postoperative Diagnosis: (1) Primary osteoarthritis of left knee Procedure: Left total knee arthroplasty with Kashif Triathlon prosthesis (uncemented) Anesthesia: Spinal with supplemental abductor canal block and local Surgeon: Franklyn Floyd M.D. Casserole Preparer(s): YECENIA Manzo Operation and Findings: Indications and Findings: This 81-year-old woman in this 11 year history of left knee pain progressively worsening over the past few years. Her ambulation tolerance is markedly limited to about 2 blocks. She has difficulty standing from a seated position and trouble with stairs. She has not responded to conservative measures including anti-inflammatory agents, analgesics, external supports, intra-articular corticosteroids. Physical findings showed significant genu valgum with lateral laxity, medial and lateral tenderness and crepitation throughout the entire range. X-rays showed severe osteoarthritis with loss of articular cartilage in the lateral compartment and patellofemoral compartment especially. Operative findings are consistent with the radiographic findings with there being tricompartmental arthritis particularly in the lateral compartment and patellofemoral compartment. There were large osteophytes, subchondral sclerosis and loss of articular cartilage to expose subchondral bone. The prosthesis used was a Kashif Triathlon prosthesis. The femur was a size 4, cruciate ligament retaining, uncemented. The tibial baseplate was a size 5 Tritanium with a 11 mm cruciate retaining X3 polyethylene spacer. The patella was a size 32 mm asymmetric with Tritanium backing. The patient was brought to the clean-air operating suite. A spinal anesthetic was administered as well as a regional anesthetic by abductor canal block. The position was supine with a small bolster under the hip on the operative side. A pneumatic tourniquet was applied to the upper thigh. The lower extremity was then prepped with alcohol, Hibiclens and ChloraPrep and draped in the usual manner with the knee draped free. An appropriate timeout procedure was carried out. An incision was made from about 3 fingerbreadths above the superior medial pole of patella down the tibial tubercle on the medial side. The incision was deepened through the subcutaneous tissue to the retinacular structures which were exposed medially and laterally. A medial retinacular incision was then made from the superior middle pole of patella down the tibial tubercle and up into the quadriceps tendon splitting it longitudinally and the medial one third. The patella was reflected. The infrapatellar fat pad was debulked. The anterior cruciate ligament was excised. Medial and lateral meniscectomies were initiated. Fenestrations were made in the distal femur and proximal tibia for intramedullary referencing guides. The distal femoral cutting guide and jig were then assembled for a 5, 8 mm cut. When this was fit position and placed cutting block was stabilized with pins. The jig was removed. The distal femoral cut was then completed with the oscillating saw. The sizing guide was then positioned in place along Whitesides line and the epicondylar axis and stabilized with pins. The femoral size was then determined as noted above. The 4-in-1 cutting block was then positioned in place. Anterior and posterior cuts were made followed by posterior and anterior chamfer cuts taking care to prevent injury to ligamentous structures. Osteophytes were then trimmed from the distal femur. A bone plug was then placed into the fenestration of the distal femur. The proximal tibia was then exposed. The medial and lateral meniscectomies were completed. The proximal tibial cutting guide was then positioned in place and stabilized with a pin for rotation. The depth of cut was then verified with a stylus off the lateral side. The cutting block was stabilized with pins. The jig was removed. The depth of cut was then verified and adjusted appropriately with the use of the spacer block. The proximal tibial cut was then made with the oscillating saw taking care to prevent injury to neurovascular and ligamentous structures. Proximal tibial bone was removed. Local anesthetic was administered with Exparel in the posterior capsule. The tibial baseplate trial was then positioned in place. After verifying the appropriate size, the base plate trial was positioned in place along with its spacer. The femoral component was then impacted into place. The alignment was checked. The tibial baseplate was then pinned in place on the tibia. Attention was directed to the patella. The patella drill guide was positioned in place for the appropriate sized patella. Patellar drilling was then carried out. The trial patella was positioned in place. The knee was taken through a range of motion which was easily 0 extension to 135 with gravity. The patella trial was removed. The femoral drill holes were made. The femoral trials were removed. The tibial spacer was removed. A bone plug was placed into the proximal tibia. The tibial punch was impacted through the proximal tibial punch guide. This was all removed followed by placement of the tibial drill guide. The tibial drill holes were then made. The guide was removed. The cut ends of bone were then cleaned with pulse lavage. The tibial baseplate was then impacted into place and seated appropriately. The spacer was inserted. The the femoral component was then impacted into place and seated appropriately. The patella component was then seated with the patellar device and tightened appropriately. The knee was taken through a range of motion which was comparable to the previous range of motion with excellent stability in flexion and extension and appropriate patellofemoral tracking. The remainder of the Exparel was then injected throughout the knee as a local anesthetic. Drains were brought out the superior lateral aspect of the suprapatellar pouch. Wound closure then commenced using 0 Vicryl interrupted [id number] sutures for the capsular and fascial structures, 2-0 Vicryl interrupted simple sutures with buried knots for the subcutaneous tissues and 4- 0 Monocryl, tenuous subcuticular closure for the skin. The wound was then dressed with Steri-Strips followed by Optifoam silver impregnated dressing. Sterile soft roll with a cooling pad and Michael bandage from the base of the toes to mid thigh were then applied. Patient was then transferred from the operating room to the recovery room in satisfactory condition having tolerated procedure well. Counts are correct. Specimens: None. Estimated blood loss: 150 mL Larry Floyd MD (Charles) Jul 01, 2017 09:17
--- NOTE | 2017-07-01 09:20 | HHI.PR ---
Immediate Post Op Note Procedure Date: Jul 01, 2017 Pre Op Diagnosis: (1) Primary osteoarthritis of left knee Post Op Diagnosis: (1) Primary osteoarthritis of left knee Surgeon: Franklyn Floyd M.D. Public Information Officer(s): YECENIA Manzo Procedure: Left total knee arthroplasty with Kashif Triathlon prosthesis (uncemented) Findings: There was severe osteoarthritis in the left knee with loss of articular cartilage to bone on bone, eburnation and osteophytes. Complications: None Specimen(s) removed: None Estimated blood loss: 150 mL Anesthesia: Regional Block (adductor canal block), Spinal, Local (with bupivacaine liposomal) Drains: Hemovac (2) IVF Tourniquet time (min at mmHg) 0 Patient to: PACU Patient Condition: Good Implant/Devices: SEE IMPLANT LOG (if applicable) Date/Time of Procedure: SEE SURGICAL CARE RECORD Larry Floyd MD (Charles) Jul 01, 2017 09:20
[2017-07-01] MEDS ORDERED: HYDR-3580 PO (09:23)
[2017-07-01] MEDS: LACTATED RINGER'S 1000 ML INJ 1,000 ML IV SCH ×2 (10:00→23:11)
[2017-07-01] MEDS ORDERED: DO NOT ADM ANY ANTICOAGULANT DRUGS PRN (10:00)
[2017-07-01] MEDS: KETOROLAC TROMETHAMINE 30 MG/ML (IVP) VIAL IVP SCH ×3 (10:18→23:10)
--- NOTE | 2017-07-01 10:38 | RADRPT ---
EXAM DATE/TIME: 07/01/2017 09:57 [facility] COMPARISON: No previous studies available for comparison. INDICATIONS : Post-op left knee. MEDICAL HISTORY : None. SURGICAL HISTORY : Total knee replacement, right. ENCOUNTER: Initial ACUITY: 1 day PAIN SCORE: Non-responsive. LOCATION: Left Knee FINDINGS: There is placement of a total knee prosthesis which appears to be well-seated. CONCLUSION: Well-seated total knee prosthesis Abhi Dash MD on July 01, 2017 at 10:35 Board Certified Radiologist. This report was verified electronically.
[2017-07-01] MEDS ORDERED: *ENALAPRILAT 1.25 MG/ML VIAL PERIprocedural Use ONLY ONE (11:01)
[2017-07-01] MEDS ORDERED: GLYCOPYRROLATE 1 MG/5 ML SYRINGE IV PUSH ONE (12:00)
[2017-07-01] MEDS ORDERED: PHENYLEPH/NS 1000 MCG/10 ML SYR IV ONE (12:00)
[2017-07-01] MEDS ORDERED: DEXAMETHASONE SOD PHOS 4 MG/ML VIAL IV ONE (12:00)
[2017-07-01] MEDS ORDERED: LACTATED RINGER'S 1000 ML INJ 1,000 ML IV ONE (12:00)
[2017-07-01] MEDS ORDERED: PROPOFOL 200 MG/20 ML AMP IV ONE (12:00)
[2017-07-01] MEDS ORDERED: ePHEDrine/NS 25 MG/5 ML SYRINGE IV ONE (12:00)
--- NOTE | 2017-07-01 12:45 | PD.CONS ---
HPI Service [facility] Consult Requested By Dr. DELISA Floyd Reason for Consult Medical management Primary Care Physician Ron Cummings M.D. Diagnoses: History of Present Illness This is a 81-year-old female who presents to the emergency department complaining of left knee pain affecting her activities of daily living secondary to osteoarthritis. Underwent elective arthroplasty by Dr. Helga Floyd who requested consultation to evaluate and manage multiple medical conditions. At this time, patient not complaining of pain after receiving nerve block. Anesthesia records reviewed she was hemodynamically stable received 1200 mL crystalloid and EBL of 150 mL. Urine output not measured. She is requesting tramadol for pain control and no narcotics if possible secondary to vomiting. Patient has history of A. fib on Tambocor. She has been in sinus rhythm for over a year and not on anticoagulation. She also has GERD controlled on Prilosec. She also has hyperlipidemia, arthritis and chronic kidney disease stage III. Case discussed with CAMPUS ADMINISTRATOR. All other systems reviewed negative Review of Systems Except as stated in HPI: all other systems reviewed are Neg Past Family Social History Allergies: Coded Allergies: No Known Allergies (Unverified Allergy, Unknown, 07/01/17) Past Medical History As previously mentioned Past Surgical History Appendectomy, tubal ligation and multiple orthopedic surgeries Reported Medications Hydrocodone-Acetamin 7.5-325 (Hydrocodone/Acetaminophen) 7.5 Mg-325 Mg Tablet 1 Tab PO Q4H PRN Walker with Front Wheels (Device) 1 Mis Mis 1 Ea .ROUTE DIRECTED Reported Omeprazole 20 Mg Tab 20 Mg PO DAILY Flecainide (Flecainide Acetate) 100 Mg Tab 100 Mg PO BID Family History heart dse Social History ex smoker . no etoh Physical Exam Vital Signs Vital Signs Date Time Temp Pulse Resp B/P (MAP) Pulse Ox O2 Delivery O2 Flow Rate FiO2 07/01/17 10:30 60 16 171/79 (109) 97 Room Air 07/01/17 10:15 62 16 174/75 (108) 97 Room Air 07/01/17 10:00 68 16 169/77 (107) 97 Room Air 07/01/17 09:45 72 16 147/76 (99) 98 Room Air 07/01/17 09:39 97.5 74 16 140/80 (100) 97 Room Air 07/01/17 06:00 98.0 61 20 201/95 (130) 97 Physical Exam GENERAL: This is an obese, well-developed patient, in no apparent distress. SKIN: No rashes, ecchymoses or lesions. Cool and dry. HEAD: Atraumatic. Normocephalic. No temporal or scalp tenderness. EYES: Pupils equal round and reactive. Extraocular motions intact. No scleral icterus. No injection or drainage. ENT: Nose without bleeding, purulent drainage or septal hematoma. Throat without erythema, tonsillar hypertrophy or exudate. Uvula midline. Airway patent. NECK: Trachea midline. No JVD or lymphadenopathy. Supple, nontender, no meningeal signs. CARDIOVASCULAR: Regular rate and rhythm without murmurs, gallops, or rubs. RESPIRATORY: Clear to auscultation. Breath sounds equal bilaterally. No wheezes , rales, or rhonchi. GASTROINTESTINAL: Abdomen soft, non-tender, nondistended. No guarding. MUSCULOSKELETAL: Extremities without clubbing, cyanosis, or edema. LLE in a CPM NEUROLOGICAL: Awake and alert. Cranial nerves II through XII intact. Motor and sensory grossly within normal limits. Five out of 5 muscle strength in all muscle groups. Normal speech. Assessment and Plan Assessment and Plan This is a 81-year-old female who presents to the emergency department complaining of left knee pain affecting her activities of daily living secondary to osteoarthritis. Underwent elective arthroplasty by Dr. Helga Floyd who requested consultation to evaluate and manage multiple medical conditions. At this time, patient not complaining of pain after receiving nerve block. Anesthesia records reviewed she was hemodynamically stable received 1200 mL crystalloid and EBL of 150 mL. Urine output not measured. She is requesting tramadol for pain control and no narcotics if possible secondary to vomiting. Ct IV toradol and MSO4 for breakthru pain. Ct postoperative care with wd care, PT and DVT prophylaxis with Asa. Checks hemoglobin and hematocrit to monitor for anemia secondary to acute blood loss Patient has history of A. fib on Tambocor. She has been in sinus rhythm for over a year and not on anticoagulation. Stable ct Tambocor. Shes on asa She also has GERD controlled on Prilosec. She also has hyperlipidemia, arthritis and chronic kidney disease stage III. Avoid nephrotoxins and repeat BMP in the morning Discussed Condition With Patient James Chen MD Jul 01, 2017 12:45
[2017-07-01] MEDS ORDERED: traMADol HCL 50 MG TAB PO PRN ×2 (13:00)
[2017-07-01 14:15] VITALS: BP 170/74; PULSE 63; RESP 18; TEMP 95.5; O2SAT 98
[2017-07-01] MEDS ORDERED: FLECAINIDE ACETATE 100 MG TAB PO ONE (15:00)
[2017-07-01 20:00] VITALS: BP 126/76; PULSE 71; RESP 16; TEMP 95.7; O2SAT 100
[2017-07-01] MEDS ORDERED: ZOLPIDEM TARTRATE 5 MG TAB PO PRN (21:00)
[2017-07-02] VITALS: BP 127/65; PULSE 55; RESP 16; TEMP 95.5; O2SAT 97
[2017-07-02] MEDS: KETOROLAC TROMETHAMINE 30 MG/ML (IVP) VIAL IVP SCH ×2 (03:00→08:50)
[2017-07-02 04:00] VITALS: BP 141/71; PULSE 57; RESP 16; TEMP 95.2; O2SAT 99
--- NOTE | 2017-07-02 06:11 | PD.ORT.PN ---
Subjective Post Op Day #: 1 Subjective Remarks She is doing well. She has minimal complaints related to the knee. Range of Motion 0 to 88. Distance Walked 20 feet, then 35. Objective Vitals Vital Signs Date Time Temp Pulse Resp B/P (MAP) Pulse Ox O2 Delivery O2 Flow Rate FiO2 07/02/17 00:00 95.5 55 16 127/65 (85) 97 07/01/17 20:00 95.7 71 16 126/76 (93) 100 07/01/17 17:39 16 07/01/17 14:15 95.5 63 18 170/74 (106) 98 07/01/17 14:00 66 16 156/85 (108) 97 Room Air 07/01/17 13:00 60 16 159/80 (106) 96 Room Air 07/01/17 12:00 56 16 158/72 (100) 96 Room Air 07/01/17 11:30 56 16 168/74 (105) 96 Room Air 07/01/17 11:15 56 16 163/69 (100) 96 Room Air 07/01/17 11:00 58 16 184/85 (118) 97 Room Air 07/01/17 10:45 58 16 160/76 (104) 97 Room Air 07/01/17 10:30 60 16 171/79 (109) 97 Room Air 07/01/17 10:15 62 16 174/75 (108) 97 Room Air 07/01/17 10:00 68 16 169/77 (107) 97 Room Air 07/01/17 09:45 72 16 147/76 (99) 98 Room Air 07/01/17 09:39 97.5 74 16 140/80 (100) 97 Room Air I/O 07/01/17 07/01/17 07/01/17 07/02/17 07/02/17 07/02/17 07:00 15:00 23:00 07:00 15:00 23:00 Intake Total 1300 ml Output Total 410 ml Balance 890 ml Intake IV Total 100 ml Other 1200 ml Output Urine Total 200 ml Drainage Total 60 ml Estimated Blood Loss 150 ml Imaging Last 24 hours Impressions Knee X-Ray 07/01/17 0650 Signed Impressions: Service Date/Time: Saturday, July 01, 2017 09:57 - CONCLUSION: Well-seated total knee prosthesis Abhi Dash MD Objective Remarks She is resting comfortably, supine in bed, in the CPM. The neurovascular status is intact. The dressing is dry and intact. Assessment & Plan Ortho Post Op Day #: 1 Problem List: (1) Primary osteoarthritis of left knee ICD Codes: M17.12 - Unilateral primary osteoarthritis, left knee Status: Resolved (2) Status post total left knee replacement ICD Codes: Z96.652 - Presence of left artificial knee joint Plan: Continue postoperative care and PT. Assessment and Plan Condition: Good. Orthopedically stable. DVT prophylaxis: TEDs, aspirin, sequentials. Discharge plans: Home with home health care. An appointment was scheduled through the office. Prescriptions: [place] 7.5/325 Larry Floyd MD ([place]) Jul 02, 2017 06:10
[2017-07-02 07:27] LABS: HEMATOCRIT 35.9 % (35.0-46.0); HEMOGLOBIN 11.7 GM/DL (11.6-15.3)
[2017-07-02 07:43] VITALS: BP 138/65; PULSE 55; RESP 18; TEMP 96.6; O2SAT 98
[2017-07-02] MEDS: FLECAINIDE ACETATE 100 MG TAB PO SCH (08:49)
[2017-07-02] MEDS: PANTOPRAZOLE SOD 20 MG DELAYED RELEASE TAB PO SCH (08:49)
[2017-07-02] MEDS: LACTATED RINGER'S 1000 ML INJ 1,000 ML IV SCH (08:50)
[2017-07-02] MEDS ORDERED: ASPIRIN EC 81 MG TABEC PO SCH (09:00)
[2017-07-02 11:52] VITALS: BP 104/53; PULSE 58; RESP 18; TEMP 97.7; O2SAT 99
[2017-07-02] MEDS ORDERED: DOCUSATE SODIUM 100 MG CAP PO SCH (21:00)
--- NOTE | 2017-07-03 08:36 | HHI.DS ---
Discharge Summary Admission Date Jul 01, 2017 at 05:25 Discharge Date: Jul 02, 2017 Admitting Diagnosis Primary osteoarthritis, left knee. Diagnosis: (1) Primary osteoarthritis of left knee Diagnosis: Principal ICD Codes: M17.12 - Unilateral primary osteoarthritis, left knee Status: Resolved (2) Status post total left knee replacement Diagnosis: Principal ICD Codes: Z96.652 - Presence of left artificial knee joint Procedures Left total knee arthroplasty with [employer] Triathlon prosthesis (uncemented) on . Brief History This is a 81 year old female patient has had long-standing pain in the left knee secondary to osteoarthritis. She has not responded to conservative measures including anti-inflammatory agents, analgesics and activity modification as well as the use of external supports for ambulation. CBC/BMP: 07/02/17 0658 Significant Findings Laboratory Tests Test 07/02/17 06:58 Physical findings at time of admission showed severe genu valgum in the knee. There was tenderness on range of motion. There is crepitation on motion. There is lateral laxity. X-rays prior to admission showed severe osteoarthritis particularly in the lateral compartment with loss of articular cartilage to bone on bone, eburnation , osteophytes. Imaging Last 72 hours Impressions Knee X-Ray 07/01/17 0650 Signed Impressions: Service Date/Time: Saturday, July 01, 2017 09:57 - CONCLUSION: Well-seated total knee prosthesis Abhi Dash MD PE at Discharge She is resting comfortably, supine in bed, in the CPM. The neurovascular status is intact. The dressing is dry and intact. Hospital Course The patient was admitted on 07/01/2017. She had a left total knee arthroplasty carried out and tolerated the procedure well. Preoperatively she had prophylactic antibiotics in the form of Ancef. This was continued postoperatively according to the protocol. She also received tranexamic acid to help with hemostasis according to the protocol as well. In post anesthesia care unit she was started on DVT prophylaxis with mechanical means in the form of ABBE stockings and sequentials. She also began physical therapy the day of surgery. She was able to ambulate well. On postoperative day 1 she started DVT prophylaxis with aspirin as an anticoagulant. She continued with physical therapy. She progressed well enough to be discharged home with home health care. Pt Condition on Discharge: Good Discharge Disposition: Disch w/ Home Health Serv Discharge Instructions Diet Instructions: As Tolerated, No Restrictions Activities You Can Perform: Full Weight Bearing, Shower Only-No Bath Activities to Avoid: Lifting/Bending, Strenuous Activity, Bathing, Driving Follow up Referrals: Orthopedics with Larry Floyd MD ([place]) New Medications: Aspirin DR (Aspirin DR) 81 Mg Tabdr 81 MG PO BID for Prevent Blood Clot for 30 Days, #60 TAB Hydrocodone/Acetaminophen (Hydrocodone-Acetamin 7.5-325) 7.5 Mg-325 Mg Tablet 1 TAB PO Q4H PRN for PAIN SCALE 1 TO 10, #30 TAB Continued Medications: Flecainide (Flecainide) 100 Mg Tab 100 MG PO BID for Regulate Heart Beat, #60 TAB 0 Refills Omeprazole (Omeprazole) 20 Mg Tab 20 MG PO DAILY, #30 TAB 0 Refills Walker with Front Wheels (Walker with Front Wheels) 1 Mis Mis 1 EA .ROUTE DIRECTED, #1 EA 0 Refills Larry Floyd MD ([place]) Jul 03, 2017 08:36
== END 2017-07-02 14:35 | disposition home health service (06) | DRG 470 ==
LOC: HSDI 05:25 → N06B 14:14
PROVIDERS: ADMIT Orthopaedic Surgery; ATTEND Orthopaedic Surgery
PROC: 3E0T3BZ Introduction of Anesthetic Agent into Peripheral Nerves and Plexi, Percutaneous Approach (ICD-10-PCS; 2017-07-01)
PROC: 0SRD0JA Replacement of Left Knee Joint with Synthetic Substitute, Uncemented, Open Approach (ICD-10-PCS; principal; 2017-07-01 06:42)
DX: M17.12 Unilateral primary osteoarthritis, left knee (principal); I48.91 Unspecified atrial fibrillation; N18.3 Chronic kidney disease, stage 3 (moderate); M21.062 Valgus deformity, not elsewhere classified, left knee; E78.5 Hyperlipidemia, unspecified; K21.9 Gastro-esophageal reflux disease without esophagitis; E66.9 Obesity, unspecified; Z68.39 Body mass index [BMI] 39.0-39.9, adult; Z79.899 Other long term (current) drug therapy; Z87.891 Personal history of nicotine dependence; Z96.651 Presence of right artificial knee joint
CPT/HCPCS: 73560; 85014; 85018; 86850; 86900; 86901; 94150; C1776; C9290; J0131; J0690; J1100; J1885; J2250; J2370; J2405; J3010; J7120; J8501